=== PATIENT | male | born 1925 | race Caucasian/White ===

== ENCOUNTER 2017-05-26 09:32 | Emergency (ER) | payer MEDICARE ==
[2017-05-26 09:37] VITALS: TEMP 98
[2017-05-26] MEDS ORDERED: methylPREDNISolone SOD SUCCI 125 MG/2 ML VIAL IV STA (10:45)
[2017-05-26] MEDS ORDERED: LEVOFLOXACIN 750 MG TAB PO STA (10:45)
[2017-05-26] MEDS ORDERED: SODIUM CHLORIDE 0.9% 1,000 ML IV STA (10:45)
[2017-05-26] MEDS ORDERED: LEVOFLOXACIN 500 MG TAB PO STA (11:05)
[2017-05-26 11:20] LABS: Basophils # (A) 0.1 k/uL (0-0.2); Basophils % (A) 1 %; Eosinophils # (A) 0.1 k/uL (0-0.7); Eosinophils % (A) 1 %; HCT 45.3 % (39.0-53.0); HGB 14.2 gm/dL (13.0-17.5); Lymphocytes # (A) 0.7 k/uL (1.0-4.8); Lymphocytes % (A) 7 %; MCH 29.2 pg (25.0-35.0); MCHC 31.5 g/dL (31.0-37.0); MCV 92.8 fL (80.0-100.0); Mean Platelet Volume 7.6; Monocytes # (A) 0.5 k/uL (0-1.0); Monocytes % (A) 4 %; Neutrophils # (A) 9.1 k/uL (1.3-7.7); Neutrophils % (A) 87 %; Platelet Count 200 k/uL (150-450); RBC 4.88 m/uL (4.30-5.90); RDW 14.4 % (11.5-15.5); WBC 10.6 k/uL (3.8-10.6)
[2017-05-26 11:23] LABS: Albumin 4.1 g/dL (3.5-5.0); Calcium 9.4 mg/dL (8.4-10.2); Potassium 5.6 mmol/L (3.5-5.1); Total Bilirubin 0.6 mg/dL (0.2-1.3); Total Protein 7.3 g/dL (6.3-8.2)
--- NOTE | 2017-05-26 11:39 | XR ---
EXAMINATION TYPE: XR chest 2V DATE OF EXAM: 05/26/2017 COMPARISON: 11/24/2015 HISTORY: Shortness of breath TECHNIQUE: Frontal and lateral views of the chest are obtained. FINDINGS: Scattered senescent parenchymal changes noted. Hyperinflation compatible with COPD. No evidence for infiltrate. No evidence for atelectasis. Chronic pulmonary venous decompensation with cardiomegaly. Suspect small effusions. Mediastinal structures are stable and grossly unremarkable. No evidence for hilar prominence. Degenerative changes dorsal spine. IMPRESSION: 1. Chronic pulmonary venous decompensation with cardiomegaly. Suspect small effusions.
[2017-05-26 11:43] LABS: Creatine Kinase MB 1.9 ng/mL (0.0-2.4); Troponin I 0.026 ng/mL (0.000-0.034)
[2017-05-26 12:18] LABS: Partial Thromboplastin Time 24.2 sec (22.0-30.0)
[2017-05-26 12:22] LABS: INR 1.1 (<1.2); Prothrombin Time 10.3 sec (9.0-12.0)
[2017-05-26] MEDS ORDERED: FUROSEMIDE 10 MG/ML 4 ML VIAL IV STA (12:24)
[2017-05-26] MEDS ORDERED: SODIUM POLYSTYRENE SULFONATE 15 GM/60 ML BOTTLE PO STA (12:30)
--- NOTE | 2017-05-26 13:10 | ED ---
SOB HPI - General Chief Complaint: Shortness of Breath Stated Complaint: SOB Time Seen by Provider: 05/26/17 10:28 Source: patient Mode of arrival: ambulatory Limitations: no limitations - History of Present Illness Initial Comments: 89 years old gentleman patient of Dr. Mendez presents with a shortness of breath ongoing for 1 day as a history of heart disease status post CABG history of aortic valve replacement and he doesn't seem like a metallic valve as has a history of congestive heart failure COPD hyperlipidemia hypertension status post CABG status post right now with the oxygen and his breathing has improved he is not short winded anymore denies any chest pain no pleuritic chest pain no fever no chills his blood pressure was elevated when he came in but it dropped without any intervention to 150 initially was 196% the review of system is unremarkable - Related Data Home Medications Medication Instructions Recorded Confirmed Aspirin EC [Ecotrin Low Dose] 81 mg PO DAILY 11/02/13 05/26/17 Simvastatin [Zocor] 40 mg PO HS 11/24/15 05/26/17 Acetaminophen [Tylenol] 1,000 mg PO BID 05/26/17 05/26/17 Metoprolol Succinate [Toprol XL] 50 mg PO DAILY 05/26/17 05/26/17 Previous Rx's Medication Instructions Recorded Azithromycin [Zithromax Z-pack] 250 mg PO DIRECTED #6 tab 05/26/17 predniSONE 50 mg PO DAILY #5 tablet 05/26/17 Allergies Allergy/AdvReac Type Severity Reaction Status Date / Time No Known Allergies Allergy Verified 05/26/17 10:09 Review of Systems ROS Statement: Those systems with pertinent positive or pertinent negative responses have been documented in the HPI. ROS Other: All systems not noted in ROS Statement are negative. Past Medical History Past Medical History: Coronary Artery Disease (CAD), Heart Failure, COPD, Hyperlipidemia, Hypertension History of Any Multi-Drug Resistant Organisms: None Reported Past Surgical History: Coronary Bypass/CABG, Orthopedic Surgery Additional Past Surgical History / Comment(s): heart valve, prostate, bone spur in shoulder removed Past Anesthesia/Blood Transfusion Reactions: No Reported Reaction Past Psychological History: No Psychological Hx Reported Smoking Status: Former smoker Past Alcohol Use History: None Reported Past Drug Use History: None Reported - Past Family History Father Family Medical History: Cancer Additional Family Medical History / Comment(s): colon Mother Family Medical History: Congestive Heart Failure (CHF) General Exam - General Exam Comments Initial Comments: General: The patient is awake and alert, in no distress, and does not appear acutely ill. Skin: Skin is warm and dry and no rashes or lesions are noted. Eye: Pupils are equal, round and reactive to light, extra-ocular movements are intact; there is normal conjunctiva bilaterally. Ears, nose, mouth and throat: There are moist mucous membranes and no oral lesions. Neck: The neck is supple, there is no tenderness o. Cardiovascular: There is a regular rate and rhythm. No murmur, rub or gallop is appreciated. Respiratory: To auscultation bilateral, exam consistent with a mild COPD Gastrointestinal: Soft, non-distended, non-tender abdomen without masses or organomegaly noted. There is no rebound or guarding present. Bowel sounds are unremarkable. Back: There is no tenderness to palpation in the midline. There is no obvious deformity. Musculoskeletal: Normal ROM, no tenderness, There is no pedal edema. There is no calf tenderness or swelling. No cords were appreciated. Neurological: CN II-XII intact, Cranial nerves III through XII are intact. There are no obvious motor or sensory deficits. Coordination appears grossly intact. Speech is normal. Psychiatric: Cooperative, appropriate mood & affect, normal judgment. Limitations: no limitations Course Vital Signs 05/26/17 05/26/17 05/26/17 09:34 10:05 11:37 Temperature 98.0 F Pulse Rate 101 H 82 Respiratory 20 22 18 Rate Blood Pressure 196/109 158/84 O2 Sat by Pulse 93 L 95 Oximetry EKG is normal sinus rhythm ventricular rate 74 GA interval is 184 QRS duration is 158 QT/QTc is 414/517, devious this EKG does not reveal any ST elevation or ST depression noticed right-sided bundle branch block, this EKG EKG was compared with the old EKG didn't appreciate any negative change is Patient was reassessed, CBC is unremarkable potassium is 5.6. He is 19 creatinine is 1.5 which is better than before troponin is negative compressive metabolic panel is unremarkable chest x-ray showed some findings but no infiltrates no severe congestive heart failure, spoke with Dr. Mendez he knows him very well and he has a follow-up appointment with him just a day or [address] be gone home on now Z-Andrea and now prednisone 50 mg once daily for next 5 days Medical Decision Making - Lab Data Result diagrams: 05/26/17 11:06 05/26/17 10:03 Lab Results 05/26/17 05/26/17 05/26/17 Range/Units 10:03 10:03 10:03 WBC (3.8-10.6) k/uL RBC (4.30-5.90) m/uL Hgb (13.0-17.5) gm/dL Hct (39.0-53.0) % MCV (80.0-100.0) fL MCH (25.0-35.0) pg MCHC (31.0-37.0) g/dL RDW (11.5-15.5) % Plt Count (150-450) k/uL Neutrophils % % Lymphocytes % % Monocytes % % Eosinophils % % Basophils % % Neutrophils # (1.3-7.7) k/uL Lymphocytes # (1.0-4.8) k/uL Monocytes # (0-1.0) k/uL Eosinophils # (0-0.7) k/uL Basophils # (0-0.2) k/uL PT 10.3 (9.0-12.0) sec INR 1.1 (<1.2) APTT 24.2 (22.0-30.0) sec Sodium 143 (137-145) mmol/L Potassium 5.6 H (3.5-5.1) mmol/L Chloride 108 H (98-107) mmol/L Carbon Dioxide 19 L (22-30) mmol/L Anion Gap 16 mmol/L BUN 28 H (9-20) mg/dL Creatinine 1.48 H (0.66-1.25) mg/dL Est GFR (CKD-EPI)AfAm 48 (>60 ml/min/1.73 sqM) Est GFR (CKD-EPI)NonAf 41 (>60 ml/min/1.73 sqM) Glucose 101 H (74-99) mg/dL Calcium 9.4 (8.4-10.2) mg/dL Total Bilirubin 0.6 (0.2-1.3) mg/dL AST 19 (17-59) U/L ALT 20 L (21-72) U/L Alkaline Phosphatase 100 (38-126) U/L Total Creatine Kinase 58 (55-170) U/L CK-MB (CK-2) 1.9 (0.0-2.4) ng/mL CK-MB (CK-2) Rel Index 3.3 Troponin I 0.026 (0.000-0.034) ng/mL Total Protein 7.3 (6.3-8.2) g/dL Albumin 4.1 (3.5-5.0) g/dL 05/26/17 Range/Units 11:06 WBC 10.6 (3.8-10.6) k/uL RBC 4.88 (4.30-5.90) m/uL Hgb 14.2 (13.0-17.5) gm/dL Hct 45.3 (39.0-53.0) % MCV 92.8 (80.0-100.0) fL MCH 29.2 (25.0-35.0) pg MCHC 31.5 (31.0-37.0) g/dL RDW 14.4 (11.5-15.5) % Plt Count 200 (150-450) k/uL Neutrophils % 87 % Lymphocytes % 7 % Monocytes % 4 % Eosinophils % 1 % Basophils % 1 % Neutrophils # 9.1 H (1.3-7.7) k/uL Lymphocytes # 0.7 L (1.0-4.8) k/uL Monocytes # 0.5 (0-1.0) k/uL Eosinophils # 0.1 (0-0.7) k/uL Basophils # 0.1 (0-0.2) k/uL PT (9.0-12.0) sec INR (<1.2) APTT (22.0-30.0) sec Sodium (137-145) mmol/L Potassium (3.5-5.1) mmol/L Chloride (98-107) mmol/L Carbon Dioxide (22-30) mmol/L Anion Gap mmol/L BUN (9-20) mg/dL Creatinine (0.66-1.25) mg/dL Est GFR (CKD-EPI)AfAm (>60 ml/min/1.73 sqM) Est GFR (CKD-EPI)NonAf (>60 ml/min/1.73 sqM) Glucose (74-99) mg/dL Calcium (8.4-10.2) mg/dL Total Bilirubin (0.2-1.3) mg/dL AST (17-59) U/L ALT (21-72) U/L Alkaline Phosphatase (38-126) U/L Total Creatine Kinase (55-170) U/L CK-MB (CK-2) (0.0-2.4) ng/mL CK-MB (CK-2) Rel Index Troponin I (0.000-0.034) ng/mL Total Protein (6.3-8.2) g/dL Albumin (3.5-5.0) g/dL Disposition Clinical Impression: COPD with acute exacerbation, Renal insufficiency, Hypertension, Hyperkalemia Disposition: HOME SELF-CARE Condition: Good Instructions: Chronic Bronchitis (ED) Prescriptions: Azithromycin [Zithromax Z-pack] 250 mg PO DIRECTED #6 tab predniSONE 50 mg PO DAILY #5 tablet Referrals: Lopez Mendez MD [Primary Care Provider] - 1-2 days
[2017-05-26 13:52] VITALS: BP 169/96; PULSE 96; RESP 18
== END 2017-05-26 13:50 | disposition home or self-care (01) ==
LOC: EC 09:32
DX: J44.1 Chronic obstructive pulmonary disease with (acute) exacerbation (principal); N28.9 Disorder of kidney and ureter, unspecified; E87.5 Hyperkalemia; I25.10 Atherosclerotic heart disease of native coronary artery without angina pectoris; I11.0 Hypertensive heart disease with heart failure; I50.9 Heart failure, unspecified; E78.5 Hyperlipidemia, unspecified; Z87.891 Personal history of nicotine dependence; Z79.82 Long term (current) use of aspirin; Z79.899 Other long term (current) drug therapy; Z53.8 Procedure and treatment not carried out for other reasons; Z95.1 Presence of aortocoronary bypass graft
CPT/HCPCS: 36415; 93005; 80053; 82550; 82553; 84484; 85025; 85610; 85730; 71046; 99285; 96374; 96375; 96361 ×2; J1940; J2930

== ENCOUNTER 2017-05-31 13:34 | Inpatient (IN) | payer MEDICARE ==
[2017-05-31] MEDS ORDERED: RX INFO: IV CONTRAST WAS GIVEN 1 EACH MISC MISCELLANE PRN (14:09)
[2017-05-31] MEDS ORDERED: SODIUM CHLORIDE 0.9% 1,000 ML IV STA (14:09)
[2017-05-31 14:28] LABS: Basophils % (A) 0 %; Eosinophils % (A) 0 %; HCT 42.1 % (39.0-53.0); HGB 14.2 gm/dL (13.0-17.5); Lymphocytes # (A) 0.4 k/uL (1.0-4.8); Lymphocytes % (A) 2 %; MCH 31.4 pg (25.0-35.0); MCHC 33.6 g/dL (31.0-37.0); MCV 93.2 fL (80.0-100.0); Mean Platelet Volume 7.7; Monocytes # (A) 0.5 k/uL (0-1.0); Monocytes % (A) 3 %; Neutrophils # (A) 16.5 k/uL (1.3-7.7); Neutrophils % (A) 94 %; Platelet Count 203 k/uL (150-450); RBC 4.52 m/uL (4.30-5.90); RDW 14.8 % (11.5-15.5); WBC 17.6 k/uL (3.8-10.6)
[2017-05-31 14:31] LABS: Albumin 3.5 g/dL (3.5-5.0); Calcium 8.6 mg/dL (8.4-10.2); Potassium 4.8 mmol/L (3.5-5.1); Total Bilirubin 0.7 mg/dL (0.2-1.3); Total Protein 6.5 g/dL (6.3-8.2)
[2017-05-31 14:38] LABS: INR 1.1 (<1.2); Partial Thromboplastin Time 22.6 sec (22.0-30.0); Prothrombin Time 10.8 sec (9.0-12.0)
--- NOTE | 2017-05-31 14:41 | ED ---
SOB HPI - General Chief Complaint: Shortness of Breath Stated Complaint: DUNG, spitting out blood Time Seen by Provider: 05/31/17 13:43 Source: patient Mode of arrival: ambulatory Limitations: no limitations - History of Present Illness Initial Comments: 89 years old gentleman comes in with a shortness of breath, I remember seeing him few days ago with shortness of breath today he is also spitting up blood and we did show me when he coughs hard blood comes out and it's not blood tinged sputum it's dashawn bright red blood. He currently is on a antibiotics and steroids, he is complaining about some chest tightness. According to the patient is not on any blood thinners he denies any headache no neck stiffness is short-winded some chest discomfort and spitting up and abdominal pain no frequency urgency dysuria no symptoms of TIA or CVA - Related Data Home Medications Medication Instructions Recorded Confirmed Aspirin EC [Ecotrin Low Dose] 81 mg PO DAILY 11/02/13 05/31/17 Simvastatin [Zocor] 40 mg PO HS 11/24/15 05/31/17 Acetaminophen [Tylenol] 1,000 mg PO BID PRN 05/26/17 05/31/17 Metoprolol Succinate [Toprol XL] 50 mg PO DAILY 05/26/17 05/31/17 traMADol HCL [Ultram] 50 - 100 mg PO Q6HR PRN 05/31/17 05/31/17 Previous Rx's Medication Instructions Recorded Azithromycin [Zithromax Z-pack] 250 mg PO DIRECTED #6 tab 05/26/17 predniSONE 50 mg PO DAILY #5 tablet 05/26/17 Allergies Allergy/AdvReac Type Severity Reaction Status Date / Time No Known Allergies Allergy Verified 05/31/17 14:18 Review of Systems ROS Statement: Those systems with pertinent positive or pertinent negative responses have been documented in the HPI. ROS Other: All systems not noted in ROS Statement are negative. Past Medical History Past Medical History: Coronary Artery Disease (CAD), Heart Failure, COPD, Hyperlipidemia, Hypertension History of Any Multi-Drug Resistant Organisms: None Reported Past Surgical History: Coronary Bypass/CABG, Orthopedic Surgery Additional Past Surgical History / Comment(s): heart valve, prostate, bone spur in shoulder removed Past Anesthesia/Blood Transfusion Reactions: No Reported Reaction Past Psychological History: No Psychological Hx Reported Smoking Status: Former smoker Past Alcohol Use History: None Reported Past Drug Use History: None Reported - Past Family History Father Family Medical History: Cancer Additional Family Medical History / Comment(s): colon Mother Family Medical History: Congestive Heart Failure (CHF) General Exam - General Exam Comments Initial Comments: General: The patient is awake and alert, moderate distress, GCS is 1515 Skin: Skin is warm and dry and no rashes or lesions are noted. Eye: Pupils are equal, round and reactive to light, extra-ocular movements are intact; there is normal conjunctiva bilaterally. Ears, nose, mouth and throat: There are moist mucous membranes and no oral lesions. Neck: The neck is supple, there is no tenderness or JVD. Cardiovascular: There is a regular rate and rhythm. No murmur, rub or gallop is appreciated. Respiratory: To auscultation bilateral, no wheezing no rhonchi no distress respiratory lester noticed Gastrointestinal: Soft, non-distended, non-tender abdomen without masses or organomegaly noted. There is no rebound or guarding present. Bowel sounds are unremarkable. Back: There is no tenderness to palpation in the midline. There is no obvious deformity. Musculoskeletal: Normal ROM, no tenderness, There is no pedal edema. There is no calf tenderness or swelling. No cords were appreciated. Neurological: CN II-XII intact, Cranial nerves III through XII are intact. There are no obvious motor or sensory deficits. Coordination appears grossly intact. Speech is normal. Psychiatric: Cooperative, appropriate mood & affect, normal judgment. Limitations: no limitations Course Vital Signs 05/31/17 05/31/17 05/31/17 13:38 13:56 13:59 Temperature 97.0 F L Pulse Rate 95 83 Respiratory 18 28 H 28 H Rate Blood Pressure 135/76 151/89 O2 Sat by Pulse 95 94 L Oximetry 05/31/17 15:56 Temperature Pulse Rate 72 Respiratory 24 Rate Blood Pressure 155/85 O2 Sat by Pulse 95 Oximetry EKG is normal sinus rhythm ventricular rate is 87 NC interval is 176 QRS duration, QRS duration is 150 QT/QTc is 410/493 review of this EKG shows some right bundle branch block and left ventricular hypertrophy with repolarization this EKG was compared with EKG done back on April 2016 at its quite unchanged , Dr. Mendez in the ER to see the patient Medical Decision Making - Lab Data Result diagrams: 05/31/17 13:52 05/31/17 13:52 Lab Results 05/31/17 05/31/17 05/31/17 Range/Units 13:52 13:52 13:52 WBC 17.6 H (3.8-10.6) k/uL RBC 4.52 (4.30-5.90) m/uL Hgb 14.2 (13.0-17.5) gm/dL Hct 42.1 (39.0-53.0) % MCV 93.2 (80.0-100.0) fL MCH 31.4 (25.0-35.0) pg MCHC 33.6 (31.0-37.0) g/dL RDW 14.8 (11.5-15.5) % Plt Count 203 (150-450) k/uL Neutrophils % 94 % Lymphocytes % 2 % Monocytes % 3 % Eosinophils % 0 % Basophils % 0 % Neutrophils # 16.5 H (1.3-7.7) k/uL Lymphocytes # 0.4 L (1.0-4.8) k/uL Monocytes # 0.5 (0-1.0) k/uL Eosinophils # 0.0 (0-0.7) k/uL Basophils # 0.0 (0-0.2) k/uL PT (9.0-12.0) sec INR (<1.2) APTT (22.0-30.0) sec Sodium 144 (137-145) mmol/L Potassium 4.8 (3.5-5.1) mmol/L Chloride 109 H (98-107) mmol/L Carbon Dioxide 20 L (22-30) mmol/L Anion Gap 15 mmol/L BUN 50 H (9-20) mg/dL Creatinine 1.59 H (0.66-1.25) mg/dL Est GFR (CKD-EPI)AfAm 44 (>60 ml/min/1.73 sqM) Est GFR (CKD-EPI)NonAf 38 (>60 ml/min/1.73 sqM) Glucose 106 H (74-99) mg/dL Calcium 8.6 (8.4-10.2) mg/dL Total Bilirubin 0.7 (0.2-1.3) mg/dL AST 22 (17-59) U/L ALT 36 (21-72) U/L Alkaline Phosphatase 74 (38-126) U/L Total Creatine Kinase 49 L (55-170) U/L CK-MB (CK-2) 3.1 H* (0.0-2.4) ng/mL CK-MB (CK-2) Rel Index 6.3 Troponin I 0.818 H* (0.000-0.034) ng/mL Total Protein 6.5 (6.3-8.2) g/dL Albumin 3.5 (3.5-5.0) g/dL 05/31/17 Range/Units 13:52 WBC (3.8-10.6) k/uL RBC (4.30-5.90) m/uL Hgb (13.0-17.5) gm/dL Hct (39.0-53.0) % MCV (80.0-100.0) fL MCH (25.0-35.0) pg MCHC (31.0-37.0) g/dL RDW (11.5-15.5) % Plt Count (150-450) k/uL Neutrophils % % Lymphocytes % % Monocytes % % Eosinophils % % Basophils % % Neutrophils # (1.3-7.7) k/uL Lymphocytes # (1.0-4.8) k/uL Monocytes # (0-1.0) k/uL Eosinophils # (0-0.7) k/uL Basophils # (0-0.2) k/uL PT 10.8 (9.0-12.0) sec INR 1.1 (<1.2) APTT 22.6 (22.0-30.0) sec Sodium (137-145) mmol/L Potassium (3.5-5.1) mmol/L Chloride (98-107) mmol/L Carbon Dioxide (22-30) mmol/L Anion Gap mmol/L BUN (9-20) mg/dL Creatinine (0.66-1.25) mg/dL Est GFR (CKD-EPI)AfAm (>60 ml/min/1.73 sqM) Est GFR (CKD-EPI)NonAf (>60 ml/min/1.73 sqM) Glucose (74-99) mg/dL Calcium (8.4-10.2) mg/dL Total Bilirubin (0.2-1.3) mg/dL AST (17-59) U/L ALT (21-72) U/L Alkaline Phosphatase (38-126) U/L Total Creatine Kinase (55-170) U/L CK-MB (CK-2) (0.0-2.4) ng/mL CK-MB (CK-2) Rel Index Troponin I (0.000-0.034) ng/mL Total Protein (6.3-8.2) g/dL Albumin (3.5-5.0) g/dL Disposition Clinical Impression: Hemoptysis, Congestive heart failure Disposition: ADMITTED IP TO THIS HOSP Referrals: Lopez Mendez MD [Primary Care Provider] - 1-2 days
--- NOTE | 2017-05-31 14:45 | XR ---
EXAMINATION TYPE: XR chest 2V DATE OF EXAM: 05/31/2017 COMPARISON: 05/26/2017 HISTORY: 89-year-old male difficulty breathing TECHNIQUE: Frontal and lateral views FINDINGS: Median sternotomy wires are present. Post-CABG clips in the mediastinum. Prosthetic aortic valve. Hea rt mildly enlarged. Diffuse interstitial and more confluent perihilar densities. Hyperinflation. Sugg estion of some pleural-based calcifications. Fluid thickening the minor fissure. IMPRESSION: Cardiomegaly with increased interstitial densities and developing confluent perihilar airspace diseas e. Correlate for CHF and interstitial pulmonary edema. Atypical pneumonias would be an alternative po ssibility.
[2017-05-31 14:57] LABS: Creatine Kinase MB 3.1 ng/mL (0.0-2.4); Troponin I 0.818 ng/mL (0.000-0.034)
[2017-05-31] MEDS ORDERED: cefTRIAXone 2,000 MG in SODIUM CHLORIDE 0.9% 100 ML IVPB STA (15:30)
[2017-05-31] MEDS ORDERED: cefTRIAXone IN SWFI 2,000 MG/20 ML SYRINGE IVP STA (15:35)
--- NOTE | 2017-05-31 15:40 | CT ---
EXAMINATION TYPE: CT chest wo con DATE OF EXAM: 05/31/2017 COMPARISON: Chest radiograph 05/31/2017 HISTORY: 89-year-old male complains of coughing up blood. Rule out mass. TECHNIQUE: Contiguous axial scanning of the chest without IV contrast. Coronal and sagittal reconstru ctions performed. CT DLP: 265.7 mGycm Automated exposure control for dose reduction was used. FINDINGS: The heart is upper limits of normal in size without pericardial effusion. Median sternotomy wires are present with post-CABG changes. Retained epicardial pacer leads. Extensive aortic valvular calcifica tions. Mild aneurysm ascending aorta 4.1 cm. Conventional and vessel branching anatomy. Aneurysm upper desce nding thoracic aorta at 3.6 cm. Enlarged caliber to the main right and left pulmonary arteries are 2.7 and 2.6 cm, respectively, sugg esting underlying pulmonary arterial hypertension. Scattered nonenlarged mediastinal lymph nodes are present, some of which are calcified suggesting madalyn or granulomatous disease. Pleural-based calcifications are present in the seen in the setting of prior asbestos exposure. There are reticular changes in the lower lungs with septal lines and some areas of patchy groundglass. Additional confluent groundglass densities with septal lines are present in the upper lungs. No obvio us mass is seen. Moderate underlying emphysema along with small pleural effusions. Small hiatal hernia. Subcentimeter hypodensity left hepatic dome too small for accurate CT characterization, probable cyst . Bones: Degenerative scoliosis. Mild vertebral compression deformity of T7 has a chronic appearance. IMPRESSION: 1. COPD WITH MODERATE EMPHYSEMA AND PULMONARY ARTERIAL HYPERTENSION. MULTIPLE PLEURAL-BASED CALCIFICA TION SUGGESTING PRIOR ASBESTOS EXPOSURE. 2. DIFFUSE SEPTAL LINES WITH MULTIFOCAL PATCHY AREAS OF GROUNDGLASS AND SMALL EFFUSIONS. CONSTELLATIO N OF FINDINGS SUGGEST CHF WITH INTERSTITIAL PULMONARY EDEMA. CLINICAL CORRELATION RECOMMENDED. 3. NO APPRECIABLE MASS GIVEN THE BACKGROUND OF LUNG DENSITIES AND NONCONTRAST TECHNIQUE. 4. MILDLY ANEURYSMAL THORACIC AORTA (ASCENDING 4.1 CM AND UPPER DESCENDING 3.6 CM). 5. SMALL HIATAL HERNIA.
[2017-05-31] MEDS ORDERED: FUROSEMIDE 10 MG/ML 4 ML VIAL IV STA (16:00)
[2017-05-31] MEDS ORDERED: NALOXONE 0.4 MG/ML 1 ML VIAL IV PRN (16:05)
[2017-05-31] MEDS ORDERED: ACETAMINOPHEN TAB 500 MG TAB PO PRN (16:12)
[2017-05-31] MEDS ORDERED: traMADol 50 MG TAB PO PRN (16:12)
[2017-05-31] MEDS: ATORVASTATIN 20 MG TAB PO SCH (20:46)
[2017-05-31] MEDS ORDERED: FUROSEMIDE 10 MG/ML 2 ML VIAL IV SCH (21:00)
--- NOTE | 2017-05-31 22:09 | HP ---
HISTORY AND PHYSICAL DATE OF SERVICE: 05/31/2017. CHIEF COMPLAINT: Coughing up blood. HISTORY OF PRESENT ILLNESS: This is an 89-year-old gentleman who presents to the emergency room with complaints of coughing up blood. The symptoms started last night. The patient was seen here about 5 to 6 days ago with complaints of shortness of breath. The patient at that time was felt to have some exacerbation of COPD, was placed on Zithromax and prednisone at discharge. The patient has had no fevers or chills. He denies any orthopnea or PND. At the time of evaluation at present, the patient basically complains of coughing up blood. He does have some shortness of breath. Denies any chest pain or palpitations. The patient does have previous history of aortic valve replacement and CABG. This been about more than 10 years now. No history of any liver disease or bleeding disorder. The patient does have a history of COPD with previous ruptured emphysematous bullous. The patient is in no distress. PAST MEDICAL HISTORY: As mentioned above. 1. Coronary artery disease, stable with previous CABG. 2. History of aortic valve replacement on aspirin, no other anticoagulation. 3. 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 4. History of spontaneous pneumothorax. 5. Peripheral arterial disease. 6. Spinal stenosis. 7. DJD. 8. Hyperlipidemia. 9. BPH. PAST SURGICAL HISTORY: Significant for TURP, CABG and aortic valve replacement. PERSONAL HISTORY: Ex-smoker. Occasional alcohol. ALLERGIES: No known medication allergies. MEDICATIONS: At present include: 1. Simvastatin 20 mg daily. 2. Aspirin 81 mg daily. 3. Metoprolol succinate 50 mg half tablet daily. 4. The patient is finishing up Zithromax and prednisone recently prescribed from the emergency room. 5. The patient also takes tramadol p.r.n. SOCIAL HISTORY: The patient is and lives with his spouse. FAMILY MEDICAL HISTORY: Noncontributory. Has a son in adequate health. REVIEW OF SYSTEMS: NEURO: Denies any headaches or dizziness. No double vision blurred vision. No symptoms of TIA syncope seizures. PSYCH: No anxiety or depression. CARDIAC: Denies chest pain, angina, palpitations. RESPIRATORY: Presently complains of cough, shortness of breath, and hemoptysis. GI: No nausea, vomiting, abdominal pain, diarrhea, constipation. : No symptoms of dysuria, hematuria, urgency. Does have some frequency. EXTREMITIES: Denies pain. Has edema at the ankles. CONSTITUTIONAL: No fevers or chills. PHYSICAL EXAMINATION: Pleasant 89-year-old gentleman in no distress at present. Vital signs revealed temperature 96.2, pulse 73, respirations 18, blood pressure 133/89, pulse ox 98% on 3 L. HEENT: Normocephalic. NECK: Supple with decreased range of motion. Pupils are reactive. Nostrils clear. Oral cavity is moist. Pharynx is clear. The patient has some dentition missing. NECK: Reveals no JVD, carotid bruits or thyromegaly. CHEST: Generalized decreased air flow. The patient has generalized decreased air flow. The patient has increased percussion. Some crackles at the bases. CARDIAC: Distant heart sounds. S1, S2. No gallops. Regular rhythm. Systolic murmur 2/6 at the apex. ABDOMEN: Soft. No palpable masses. Bowel sounds normal. No organomegaly. No abdominal bruits. EXTREMITIES: Edema 1 to 2+ at the ankles. Decreased pedal pulses. NEUROLOGIC: Awake, alert, oriented. Well-coordinated movements, both upper lower extremities. Has generalized increased stiffness and some bradykinesia. LABORATORY ASSESSMENT: Troponin which is 16,800, hemoglobin 14.2, white count 17.6. Electrolytes normal. BUN 50, creatinine 1.59. Troponin 0.0818. Albumin 3.5. Chest x-ray shows CHF changes. CT scan reveals suggestion of pulmonary hypertension. ASSESSMENT: 1. Acute congestive cardiac failure secondary to systolic dysfunction. 2. Hemoptysis secondary to congestive heart failure and pulmonary edema. 3. Hemoptysis secondary to congestive heart failure. 4. Probably pulmonary hypertension. 5. History of ischemic cardiomyopathy. 6. Previous history of aortic valve replacement. 7. History of coronary artery disease. 8. 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 9. Chronic kidney disease stage 3. PLAN: The patient at present is stable. We will give the patient diuretics, diurese the patient. The patient's white count is elevated due to steroid use. The patient's general condition is discussed with the patient's spouse and the son over the phone. Prognosis remains guarded. MMODL / IJN: [id number] /
[2017-06-01 07:01] LABS: Calcium 8.9 mg/dL (8.4-10.2); Potassium 4.9 mmol/L (3.5-5.1)
[2017-06-01] MEDS ORDERED: IPRATROPIUM-ALBUTEROL 3 ML NEB INHALATION PRN (07:47)
[2017-06-01] MEDS: FUROSEMIDE 10 MG/ML 4 ML VIAL IV SCH ×2 (08:22→20:54)
--- NOTE | 2017-06-01 10:05 | ECHOF ---
Referral Reason:chf MEASUREMENTS -------- HEIGHT: 167.6 cm WEIGHT: 65.3 kg BP: 123/70 RVIDd: 3.2 cm (< 3.3) IVSd: 1.2 cm (0.6 - 1.1) LVIDd: 4.2 cm (3.9 - 5.3) LVPWd: 1.5 cm (0.6 - 1.1) IVSs: 2.1 cm LVIDs: 3.3 cm LVPWs: 1.4 cm LA Diam: 3.5 cm (2.7 - 3.8) LAESV Index (A-L): 30.66 ml/m Ao Diam: 3.4 cm (2.0 - 3.7) AV Cusp: 1.3 cm (1.5 - 2.6) MV EXCURSION: 12.148 mm (> 18.000) MV EF SLOPE: 30 mm/s (70 - 150) EPSS: 1.9 cm MV E Jerel: 0.85 m/s MV DecT: 226 ms MV A Jerel: 0.89 m/s MV E/A Ratio: 0.95 AV maxP.34 mmHg AV maxP.34 mmHg AV meanP.02 mmHg RAP: 5.00 mmHg RVSP: 25.82 mmHg FINDINGS -------- This was a technically good study. The left ventricular size is normal. There is moderate concentric left ventricular hypertrophy. O verall left ventricular systolic function is moderate-severely impaired with, an EF between 30 - 35 % . Basal inferior LV wall motion is hypokinetic. Basal inferoseptal LV wall motion is hypokinetic . Basal inferolateral hypokinesis The right ventricle is normal in size. LA is midly dilated 29-33ml/m2. The right atrium is normal in size. Peak/mean gradient across the Aortic Valve is 34.34mmHg / 20.02mmHg. There is mild regurgitation of the bioprosthetic aortic valve. The mitral valve leaflets are mildly thickened. Mild mitral annular calcification present. Mild-t o-moderate mitral regurgitation is present. Mild tricuspid regurgitation present. Right ventricular systolic pressure is normal at < 35 mmHg. Moderate pulmonic regurgitation. The aortic root size is normal. IVC Not well visulized. There is no pericardial effusion. CONCLUSIONS -------- 1. This was a technically good study. 2. The left ventricular size is normal. 3. There is moderate concentric left ventricular hypertrophy. 4. Overall left ventricular systolic function is moderate-severely impaired with, an EF between 30 - 35 %. 5. Basal inferior LV wall motion is hypokinetic. 6. Basal inferoseptal LV wall motion is hypokinetic. 7. Basal inferolateral hypokinesis 8. The right ventricle is normal in size. 9. LA is midly dilated 29-33ml/m2. 10. The right atrium is normal in size. 11. Peak/mean gradient across the Aortic Valve is 34.34mmHg / 20.02mmHg. 12. There is mild regurgitation of the bioprosthetic aortic valve. 13. The mitral valve leaflets are mildly thickened. 14. Mild mitral annular calcification present. 15. [id number] mitral regurgitation is present. 16. Mild tricuspid regurgitation present. 17. Right ventricular systolic pressure is normal at < 35 mmHg. 18. Moderate pulmonic regurgitation. 19. The aortic root size is normal. 20. IVC Not well visulized. 21. There is no pericardial effusion. PERIPHERAL EQUIPMENT OPERATOR: Ame Chairez RDCS
[2017-06-01] MEDS: ASPIRIN 81 MG PO SCH (11:10)
[2017-06-01] MEDS: METOPROLOL SUCCINATE (ER) 50 MG TAB.ER.24H PO SCH (11:10)
[2017-06-01] MEDS: ATORVASTATIN 20 MG TAB PO SCH (20:54)
[2017-06-01 21:12] LABS: Glucose,Whole Blood 107 mg/dL (75-99)
--- NOTE | 2017-06-01 23:16 | PN ---
PROGRESS NOTE CHIEF COMPLAINT: Re-evaluation. HISTORY OF PRESENT ILLNESS: This is an 89-year-old gentleman who was admitted to the hospital yesterday with shortness of breath and hemoptysis. The patient is feeling better today. He has not coughed up any blood. His breathing has improved. . REVIEW OF SYSTEMS: NEURO: Denies any headaches, dizziness. PSYCH: No anxiety. CARDIAC: Denies chest pain, angina, palpitation. RESPIRATORY: Denies shortness of breath. Does have some cough. No hemoptysis. GI: No nausea, vomiting. Appetite good. No abdominal pain. No diarrhea. : No symptoms of dysuria, hematuria. EXTREMITIES: Mild chronic pain. CONSTITUTIONAL: No fever, chills. PHYSICAL EXAMINATION: Pleasant gentleman at present in no distress. Vital signs revealed temperature 97.5, pulse 68, respirations 16, blood pressure 134/63, pulse ox 94% in room air. HEENT: Normocephalic. NECK: No JVD. CHEST: Clear to auscultation with mild generalized decreased air flow. CARDIAC: Distant heart sounds S1, S2 with no gallop. Systolic murmur 2/6, left sternal border and apex. ABDOMEN: Soft. Bowel sounds normal. No organomegaly. No bruits. Extremities revealed no edema. Decreased pedal pulses. Neurologically awake, alert, oriented to place, person. Moves both upper and lower extremities adequately. LABORATORY ASSESSMENT: Electrolytes normal. BUN 56, creatinine 1.54. Echocardiogram reveals ejection fractions at 30% to 35%. ASSESSMENT: 1. Acute congestive cardiac failure secondary to systolic dysfunction. 2. Dilated ischemic cardiomyopathy. 3. Coronary artery disease. 4. Chronic obstructive pulmonary disease. 5. Chronic kidney disease. PLAN: The patient is stable. Continue present medical regimen. Patient's condition discussed with the patient. Patient's condition is guarded. Prognosis guarded. Continue present diuresis. Repeat labs in the morning. Chest x-ray in the morning. Potential discharge home in 48 hours. MMODL / IJN: [id number] /
[2017-06-02] MEDS: ASPIRIN 81 MG PO SCH (08:25)
[2017-06-02] MEDS: METOPROLOL SUCCINATE (ER) 50 MG TAB.ER.24H PO SCH (08:25)
[2017-06-02] MEDS: HEPARIN SODIUM,PORCINE 5,000 UNIT/ML 1 ML VIAL SQ SCH ×2 (08:25→20:28)
[2017-06-02 08:44] LABS: Calcium 8.9 mg/dL (8.4-10.2); Potassium 4.7 mmol/L (3.5-5.1)
[2017-06-02] MEDS ORDERED: FUROSEMIDE 10 MG/ML 4 ML VIAL IV SCH (09:00)
--- NOTE | 2017-06-02 12:51 | XR ---
EXAMINATION TYPE: XR chest 2V DATE OF EXAM: 06/02/2017 COMPARISON: 05/31/2017 TECHNIQUE: PA and lateral views submitted. HISTORY: Difficulty breathing FINDINGS: Median sternotomy wires are present. Post-CABG clips in the mediastinum. Prosthetic aortic valve. Hea rt mildly enlarged. Diffuse interstitial and more confluent perihilar densities. Hyperinflation. Suggestion of some pleural-based calcifications. Suspect chronic rib deformities kenroy g the lower rib cage on the left. Arthropathy of the shoulders. Atherosclerotic change aorta.. Sugges tion of an epicardial lead with degenerative change of the spine. IMPRESSION: 1. Stable x-ray correlate for chronic interstitial lung disease. Superimposed venous congestion or in terstitial pneumonitis in the differential diagnosis. Findings slightly improved compared to the prio r exam.
[2017-06-02 14:49] VITALS: BMI 22.6
[2017-06-02] MEDS: ATORVASTATIN 20 MG TAB PO SCH (20:28)
[2017-06-02 20:42] VITALS: RESP 18
--- NOTE | 2017-06-02 22:47 | PN ---
PROGRESS NOTE ATTENDING PHYSICIAN: Dr. Trixie Mendez. CHIEF COMPLAINT: Re-evaluation. HISTORY OF PRESENT ILLNESS: This 89-year-old gentleman was admitted to the hospital because of hemoptysis and shortness of breath. He is feeling better. The patient has had a small amount of hemoptysis last night; however, subsequent to that, he has not had this morning. He does not have any hemoptysis. His breathing is better. He has minimal cough. No chest pain. No fever. History of COPD. REVIEW OF SYSTEMS: NEURO: Denies any headaches, dizziness. PSYCH: No anxiety. CARDIAC: Denies chest pain, angina, palpitations. RESPIRATORY: Denies shortness of breath. Has some cough. Minimal hemoptysis. GI: No nausea, vomiting, abdominal pain, diarrhea. : No symptoms of dysuria, hematuria. EXTREMITIES: No pain. CONSTITUTIONAL: No fever, chills. PHYSICAL EXAMINATION: Elderly gentleman in no distress. Vital signs reveal temperature 97.5, pulse 69, respirations 18, blood pressure 146/67, 98% on room air. HEENT: Normocephalic. NECK: No JVD. CHEST: Clear to auscultation with generalized decreased air flow. CARDIAC: Normal S1, S2 with no gallop. Systolic murmur 2/6 left sternal border. Abdomen is soft. Bowel sounds present. Extremities reveal no edema. NEUROLOGICAL: Awake, alert, oriented with well-coordinated movements. Cardiac rhythm on monitor, the patient had a run of SVT with no symptoms. Laboratory assessment reveals electrolytes are normal. BUN 60, creatinine 1.58. Chest x-ray reveals some mild improvement. Suspect pulmonary venous congestion and interstitial lung disease not ruled out. ASSESSMENT: 1. Acute congestive cardiac failure secondary to systolic dysfunction, improved. 2. Dilated cardiomyopathy. 3. Chronic obstructive pulmonary disease. 4. Hemoptysis. 5. Chronic kidney disease stage 3. PLAN: Continue present medical regimen. Patient's condition discussed with the patient. Prognosis guarded. Potential discharge home tomorrow. MMODL / IJN: [id number] /
[2017-06-03 05:37] VITALS: BP 116/70; PULSE 74; TEMP 97.4
[2017-06-03 07:04] LABS: Calcium 8.7 mg/dL (8.4-10.2); Potassium 4.9 mmol/L (3.5-5.1)
[2017-06-03] MEDS: ASPIRIN 81 MG PO SCH (08:41)
[2017-06-03] MEDS: METOPROLOL SUCCINATE (ER) 50 MG TAB.ER.24H PO SCH (08:41)
[2017-06-03] MEDS: HEPARIN SODIUM,PORCINE 5,000 UNIT/ML 1 ML VIAL SQ SCH (08:44)
[2017-06-03] MEDS ORDERED: FUROSEMIDE 20 MG TAB PO SCH (09:00)
[2017-06-03] MEDS ORDERED: LOSARTAN 25 MG TAB PO SCH (09:00)
== END 2017-06-03 09:55 | disposition home or self-care (01) | DRG 291 ==
LOC: EC 13:34 → 6SEL 16:05
PROVIDERS: ADMIT Internal Medicine; ATTEND Internal Medicine
DX: I13.0 Hypertensive heart and chronic kidney disease with heart failure and stage 1 through stage 4 chronic kidney disease, or unspecified chronic kidney disease (principal); I50.23 Acute on chronic systolic (congestive) heart failure; I27.20 Pulmonary hypertension, unspecified; I42.0 Dilated cardiomyopathy; I25.5 Ischemic cardiomyopathy; E78.5 Hyperlipidemia, unspecified; I25.10 Atherosclerotic heart disease of native coronary artery without angina pectoris; I73.9 Peripheral vascular disease, unspecified; J43.9 Emphysema, unspecified; N18.3 Chronic kidney disease, stage 3 (moderate); N40.0 Benign prostatic hyperplasia without lower urinary tract symptoms; T38.0X5A Adverse effect of glucocorticoids and synthetic analogues, initial encounter; M19.90 Unspecified osteoarthritis, unspecified site; M48.00 Spinal stenosis, site unspecified; Z82.49 Family history of ischemic heart disease and other diseases of the circulatory system; Z87.891 Personal history of nicotine dependence; Z95.1 Presence of aortocoronary bypass graft; Z95.2 Presence of prosthetic heart valve; Z79.82 Long term (current) use of aspirin; Z79.899 Other long term (current) drug therapy; Z79.52 Long term (current) use of systemic steroids
CPT/HCPCS: 36415; 71046; 71250; 80048; 80053; 82550; 82553; 83735; 83880; 84484; 85025; 85610; 85730; 93005; 93306; 96361; 96374; 96375; 99285